=== PATIENT | female | born 1955 | race Caucasian/White ===

== ENCOUNTER → 2016-11-02 | Outpatient (CLI) | payer OTHER ==
--- NOTE | 2016-11-02 10:59 | XR ---
EXAMINATION TYPE: XR chest 2V DATE OF EXAM: 11/02/2016 COMPARISON: None HISTORY: 61-year-old female with cough TECHNIQUE: Frontal and lateral views FINDINGS: The cardiomediastinal silhouette, aorta, and pulmonary vasculature are within normal limits. Hypodens e nodules in the left upper lobe suggest calcified granulomas. Strandy atelectasis or scarring at the right upper to midlung. Nipple shadow on the right. No consolidation or pleural effusion. IMPRESSION: Suspect a couple calcified granulomas in the left upper lobe. No acute process seen.
== END | disposition home or self-care (01) ==
LOC: RADXRYALE 09:54
PROVIDERS: ATTEND Internal Medicine
DX: R05 Cough (principal)
CPT/HCPCS: 71020

== ENCOUNTER → 2016-11-05 | Outpatient (CLI) | payer OTHER ==
--- NOTE | 2016-11-07 12:16 | BMR ---
EXAMINATION TYPE: MR breast BILAT wo/w con DATE OF EXAM: 11/05/2016 COMPARISON: Bilateral breast MRI dated 10/05/2015 and 09/11/2014 HISTORY: 61-year-old postmenopausal female with family history of breast cancer. BRCA1 positive. TECHNIQUE: A series of fat and water weighted images in the long and short axis views of both breasts are obtained in conjunction with dynamic contrast MRI with subtraction technique. The patient was i njected with 12 mL intravenous MultiHance gadolinium contrast. Three-dimensional and additional pos tprocessing imaging is created on independent workstation and reviewed during official interpretation of this study. FINDINGS: The breasts are composed of extremely dense fibroglandular tissue. There is mild, symmetric background parenchymal enhancement. Scattered subcentimeter T2 hyperintense nonenhancing cysts are s een bilaterally. Susceptibility artifact is seen of the central medial right breast and posterior dep th relating to a biopsy marker. No suspicious enhancement or nonmass enhancement is appreciated. No abnormal internal mammary, axilla ry or intramammary lymphadenopathy is appreciated. IMPRESSION: No MRI evidence of malignancy. Annual screening mammography is recommended for which the patient is d ue unless performed at an outside facility.
== END | disposition home or self-care (01) ==
LOC: RADMRIMAIN 06:59
PROVIDERS: ATTEND Internal Medicine
DX: Z15.01 Genetic susceptibility to malignant neoplasm of breast (principal)
CPT/HCPCS: 77059; 0159T; A9577

== ENCOUNTER → 2016-11-17 | Outpatient (CLI) | payer OTHER ==
--- NOTE | 2016-11-17 17:08 | CT ---
EXAMINATION TYPE: CT chest w con DATE OF EXAM: 11/17/2016 COMPARISON: NONE HISTORY: 30 lb weight loss over 3 months. Weakness. Pulmonary nodule. CT DLP: 320.00 mGycm. Automated Exposure Control for Dose Reduction was Utilized. TECHNIQUE: CT scan of the thorax is performed following with IV Contrast, patient injected with 100 mL of Omnipaque 300. FINDINGS: LUNGS: There is moderate centrilobular emphysematous change with biapical pleural parenchymal scarrin g. Right lower lobe pulmonary nodule on series 4 image 48 measures 5 mm. 3 mm right lower lobe pulmon prateek nodule is seen in image 52. 3 mm pulmonary nodule is also present on image 58. Minimal bibasilar subsegmental atelectasis is seen. 4 mm pulmonary nodule along the interlobar fissure could relate to intrafissural lymph node seen on series 4 image 37 versus true pulmonary nodule. Calcified nodules wi thin left upper lobe and right lung apex relate to prior granulomatous change. The lungs are grossly clear, there is no concerning parenchymal mass or nodule identified. There is no pleural effusion o r pneumothorax seen. The tracheobronchial tree is patent. MEDIASTINUM: Mildly enlarged conglomeration of hilar adenopathy seen on the right measuring 1.1 x 1.4 cm. No gross evidence of mediastinal or axillary adenopathy. OTHER: No additional significant abnormality is seen. IMPRESSION: 1. Moderate centrilobular emphysematous changes. 2. Multiple sub-5 mm solid pulmonary nodules. In a high-risk patient repeat chest CT is recommended i n 6-12 months. 3. Mildly enlarged right hilar adenopathy, possibly reactive.
== END | disposition home or self-care (01) ==
LOC: RADCTMAIN 15:54
PROVIDERS: ATTEND Internal Medicine
DX: J43.2 Centrilobular emphysema (principal); R91.8 Other nonspecific abnormal finding of lung field; R59.0 Localized enlarged lymph nodes
CPT/HCPCS: 71260; Q9967

== ENCOUNTER → 2016-12-05 | Outpatient (CLI) | payer OTHER ==
--- NOTE | 2016-12-05 20:54 | US ---
EXAMINATION TYPE: US kidneys/renal and bladder DATE OF EXAM: 12/05/2016 COMPARISON: CT chest November 17, 2016 CLINICAL HISTORY: R31.21 asymptomatic microscopic hematuria. EXAM MEASUREMENTS: Right Kidney: 11.6 x 4.1 x 5.3 cm Left Kidney: 12.5 x 4.4 x 4.8 cm Right Kidney: cyst noted measuring 2.2 x 1.5 x 2.8 Left Kidney: echogenic foci noted superior, possible stone Bladder: dependant debris midline Bilateral Jets seen: Yes There is no evidence for hydronephrosis at this point in time. No nephrolithiasis is seen. No worri some solid or cystic masses are identified. The urinary bladder is predominantly anechoic. Bilatera l ureteral jets are seen. Dependent density could reflect some pus, debris, or blood product. IMPRESSION: No significant abnormality is identified to account for patient's symptoms of hematuria. Consider CT urogram evaluation if symptoms persist.
== END | disposition home or self-care (01) ==
LOC: RADUSWWP 15:26
PROVIDERS: ATTEND Internal Medicine
DX: R31.21 Asymptomatic microscopic hematuria (principal)
CPT/HCPCS: 76770

== ENCOUNTER → 2017-01-24 | Outpatient (CLI) | payer OTHER ==
--- NOTE | 2017-01-24 16:06 | CT ---
EXAMINATION TYPE: CT urogram wo/w con DATE OF EXAM: 01/24/2017 COMPARISON: NONE HISTORY: 61-year-old female hematuria TECHNIQUE: Contiguous axial scanning of the abdomen and pelvis performed without and with IV Contrast , patient injected with 100 ml mL of Omnipaque 300. Delayed images through the kidneys and bladder we re obtained. Coronal/sagittal reconstructions performed. 3-D reconstructions generated on a dedicated independent workstation. CT DLP: 1607 mGycm Automated exposure control for dose reduction was used. FINDINGS: The heart is normal size without pericardial effusion. Ectasia of the distal descending thoracic aort a at 2.7 cm. Calcified granuloma at the left base. A 3 and 4 mm pulmonary nodule at the right base, a xial image 7 and 13. Some focal fat along the anterior falciform ligament. Portal venous system is patent. No biliary duct al dilatation. Gallbladder, adrenal glands, and pancreas show no gross abnormality. A couple tiny calcified granulom as within the spleen. Kidneys show no evidence for nephrolithiasis or hydronephrosis. There is symmetric uptake and excreti on of contrast from both kidneys. The right kidney is slightly malrotated with a 2.8 cm cyst at the midpole. Additional subcentimeter h ypodensity exophytic from the upper pole cortex is too small for accurate CT characterization, likely a tiny cyst. No suspicious renal lesion. Symmetric uptake and excretion of contrast from both kidneys. No suspicious filling defect within the renal collecting systems or along the course of either ureter. No dilated small bowel, free fluid, or free air. No mesenteric or retroperitoneal lymphadenopathy see n. Mild overall stool burden. No pericolonic inflammatory change. No suspicious filling defects seen within the bladder. No abnormal fluid collection in the pelvis. Ut erus is not seen, likely surgically absent. Neither ovary is identified and could be small or also constantnio rgically absent. Bones: No osseous destructive process. IMPRESSION: 1. NO NEPHROLITHIASIS OR HYDRONEPHROSIS. NO SUSPICIOUS RENAL LESION OR FILLING DEFECT WITHIN THE JOVANY ECTING SYSTEMS OR URETERS. 2. A 2.8 CM CYST IN THE RIGHT KIDNEY AND ADDITIONAL SUBCENTIMETER CORTICAL LESION ON THE RIGHT LIKELY ADDITIONAL TINY CYST.
== END | disposition home or self-care (01) ==
LOC: RADCTMAIN 13:46
PROVIDERS: ATTEND Urology
DX: N28.1 Cyst of kidney, acquired (principal); N28.89 Other specified disorders of kidney and ureter
CPT/HCPCS: 74178; 74400; Q9967

== ENCOUNTER → 2017-07-11 | Outpatient (CLI) | payer BC ==
[2017-07-11 16:00] VITALS: BP 113/58; PULSE 95; TEMP 97.9; BMI 19.2
--- NOTE | 2017-07-11 16:57 | P.HPOB ---
History of Present Illness H&P Date: 07/11/17 Chief Complaint: Patient is here for her routine gynecologic exam. This is a 61-year-old with an LMP of 2006. She underwent a total laparoscopic hysterectomy with BSO in 2016. The patient states this was done because she tested positive for BRCA 1. The hysterectomy was benign. She also started having yearly breast MRIs because of this testing. She states she did have genetic counseling regarding the BRCA testing. She states she saw Dr. Aguilar for this. She is without gynecologic complaints. Review of Systems She has lost 11 pounds over the last 2 years. She denies respiratory, cardiac, or G.I. problems. Past Medical History Past Medical History: No Reported History Additional Past Medical History / Comment(s): +BRCA 1 ( cancer gene). 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 She has had for vaginal deliveries. History of Any Multi-Drug Resistant Organisms: None Reported Past Surgical History: Hysterectomy (TLH with BSO) Additional Past Surgical History / Comment(s): 2016 Past Anesthesia/Blood Transfusion Reactions: Family History of Problems w/ Anesthesia, Motion Sickness Additional Past Anesthesia/Blood Transfusion Reaction / Comment(s): MOTHER HAD PONV. NO PREV ANESTHESIA OR SURGERY. Past Psychological History: No Psychological Hx Reported Smoking Status: Current every day smoker (6 cigarettes to one pack of cigarettes per day. 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 - Past Family History Mother Sister(s) Daughter(s) Family Medical History: Cancer (Breast cancer age 36, positive for a BRCA gene) Mother Family Medical History: Cancer (Breast cancer in her 80s) Sister(s) Family Medical History: Cancer (Breast and ovarian cancer) Father Family Medical History: Cancer (Cancer of the brain) Medications and Allergies Home Medications Medication Instructions Recorded Confirmed Type Calcium Carbonate/Vitamin D3 1 tab PO DAILY 02/24/16 02/29/16 History [Caltrate 600 Plus D3 Tablet] Multivitamins, Thera [Multivitamin] 1 tab PO DAILY 02/24/16 02/29/16 History Naproxen Sodium [Aleve] 440 mg PO BID PRN 02/24/16 02/29/16 History Allergies Allergy/AdvReac Type Severity Reaction Status Date / Time No Known Allergies Allergy Verified 07/11/17 16:01 Exam - Vital Signs Vital signs: Vital Signs Temp Pulse BP 07/11/17 15:57 97.9 F 95 113/58 Intake and Output 07/11/17 07/11/17 07/11/17 06:59 14:59 22:59 Other: Weight 60.781 kg Height 5'10" BMI 19.2. This is a well-developed thin white female who is alert and oriented times 3 in no acute distress. HEENT: Within normal limits. NECK: Supple without mass or thyromegaly. CHEST AND LUNGS: Clear to auscultation. HEART: Regular rate and rhythm. BREASTS: Are without mass or discharge. AXILLARY EXAM: Negative for adenopathy. BACK: Negative for CVA tenderness. ABDOMEN: Soft, nontender, without palpable masses. PELVIC EXAM: Normal external genitalia with mild to moderate atrophy. Vagina appears normal with mild atrophy. There is no unusual discharge. There is no evidence of prolapse. There are no palpable adnexal masses or tenderness. RECTAL EXAM: rectovaginal exam is negative for mass or tenderness and is negative for occult blood. EXTREMITIES: Nontender. IMPRESSION: 1. 61-year-old menopausal female status post TLH with BSO for positive BRCA1 testing. The hysterectomy was benign. 2. Strong family history of breast and ovarian cancer with positive BRCA1 testing. PLAN: 1. Pap smears have been discontinued. 2. Self breast awareness was discussed. 3. I have recommended that she continue yearly screening mammograms even though she does get yearly MRI testing of the breast. An order slip for bilateral screening mammogram was given to the patient. MRI testing of the breast will be done through Dr. Palacios as she is done in the past. 4. Osteoporosis prevention was discussed. I have also recommended bone density screening since it has been many years since he has had this done. An order slip was given to the patient for this. 5. I have recommended that she quit smoking. We discussed various ways of doing this. 6. She will return in one year.
== END ==
LOC: WWCWWP 14:54
PROVIDERS: ATTEND Obstetrics & Gynecology
DX: Z53.9 Procedure and treatment not carried out, unspecified reason (principal)

== ENCOUNTER → 2017-08-08 | Outpatient (CLI) | payer BC ==
--- NOTE | 2017-08-09 12:03 | BD ---
EXAMINATION TYPE: Axial Bone Density DATE OF EXAM: 08/08/2017 COMPARISON: NONE CLINICAL HISTORY: 62-year-old female postmenopausal screening without HRT Height: 68.2 IN Weight: 131 LBS FRAX RISK QUESTIONS: Current Tobacco Use: YES RISK FACTORS HISTORY OF: Active: YES Postmenopausal woman: AGE 51 MEDICATIONS: Additional Medications: CALCIUM, VIT D EXAM MEASUREMENTS: Bone mineral densitometry was performed using the [employer] System. Bone mineral density as measured about the Lumbar spine is: ----- L1-L4(G/cm2): 0.873 T Score Values are as follows: ----- L2: -2.7 ----- L3: -2.2 ----- L4: -2.8 ----- L1-L4: -2.6 Bone mineral density BASELINE Bone mineral density about the R hip (g/cm2): 0.696 Bone mineral density about the L hip (g/cm2): 0.749 T Score values are as follows: -----R Neck: -2.5 -----L Neck: -2.1 -----R Total: -2.9 -----L Total: -2.3 Bone mineral density BASELINE IMPRESSION: Osteoporosis (T Score less than -2.5). There is increased fracture risk and therapy is usually indicated based on age. Re-Screen 1-2 years. NOTE: T-SCORE=SD OF THE YOUNG ADULT MEAN.
--- NOTE | 2017-08-10 11:21 | MM ---
Reason for exam: screening (asymptomatic). Last mammogram was performed 1 year and 11 months ago. History: Patient is postmenopausal. Family history of breast cancer in mother at age 84, breast cancer in sister at age 40, and breast cancer in daughter at age 36. Benign excisional biopsy of the right breast, September 07, 2004. Stereotactic core biopsy of the right breast, August 25, 2004. Physical Findings: A clinical breast exam by your physician is recommended on an annual basis and results should be correlated with mammographic findings. MG Screening Mammo w CAD Bilateral CC and MLO view(s) were taken. Prior study comparison: September 16, 2015, bilateral MG 3d screening mammo w/cad. May 21, 2014, mammogram, performed at [facility]. The breast tissue is heterogeneously dense. This may lower the sensitivity of mammography. No significant changes when compared with prior studies. ASSESSMENT: Negative, BI-RAD 1 RECOMMENDATION: Routine screening mammogram of both breasts in 1 year. Patient should continue monthly self breast exams. A negative mammogram should not preclude additional follow up of suspicious palpable abnormality.
== END | disposition home or self-care (01) ==
LOC: RADMAMWWP 15:27
PROVIDERS: ATTEND Obstetrics & Gynecology
DX: Z12.31 Encounter for screening mammogram for malignant neoplasm of breast (principal); M81.0 Age-related osteoporosis without current pathological fracture; Z80.3 Family history of malignant neoplasm of breast; Z78.0 Asymptomatic menopausal state
CPT/HCPCS: 77067; 77080

== ENCOUNTER → 2018-11-13 | Outpatient (CLI) | payer OTHER ==
[2018-11-13 12:45] VITALS: BP 128/70; PULSE 88; RESP 18; TEMP 98.5; BMI 20.2
--- NOTE | 2018-11-13 13:25 | P.HPOB ---
History of Present Illness H&P Date: 11/13/18 Chief Complaint: The patient is here for her routine gynecologic exam and ma mmogram. This is a 63-year-old with an LMP of 2006. The patient is status post [facility] with BSO in 2016 because of her history of being positive for the BRCA1 mutation. The hysterectomy was benign. The patient is without gynecologic complaints. She has been having breast MRIs yearly because of her positive BRCA testing. Review of Systems The patient has gained 6 pounds over the last year. She denies respiratory, cardiac, or G.I. problems. She has been feeling tired. She has done blood testing for this through her primary care physician. Past Medical History Past Medical History: No Reported History Additional Past Medical History / Comment(s): +BRCA 1 ( cancer gene). 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 She has had for vaginal deliveries. History of Any Multi-Drug Resistant Organisms: None Reported Past Surgical History: Hysterectomy Additional Past Surgical History / Comment(s): TL Hyst with BSO in 2015. Colonoscopy 2018. Past Anesthesia/Blood Transfusion Reactions: Family History of Problems w/ Anesthesia, Motion Sickness Additional Past Anesthesia/Blood Transfusion Reaction / Comment(s): MOTHER HAD PONV. NO PREV ANESTHESIA OR SURGERY. Past Psychological History: No Psychological Hx Reported Smoking Status: Current every day smoker (Half to one pack of cigarettes per day) Past Alcohol Use History: None Reported Additional Past Alcohol Use History / Comment(s): SMOKER FOR 25 YEARS, 1 PPD AVG. 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 - Past Family History Mother Sister(s) Daughter(s) Family Medical History: Cancer Additional Family Medical History / Comment(s): Breast cancer in her mother, sister and daughter. Sister had both ovarian and breast cancer. Daughter had breast cancer at age 36 and is BRCA positive. Mother Family Medical History: Cancer Additional Family Medical History / Comment(s): Breast cancer in her 80s. Sister(s) Family Medical History: Cancer Additional Family Medical History / Comment(s): Breast and ovarian cancer. Father Family Medical History: Cancer Additional Family Medical History / Comment(s): Brain cancer. Medications and Allergies Home Medications Medication Instructions Recorded Confirmed Type Calcium Carbonate/Vitamin D3 1 tab PO DAILY 02/24/16 11/13/18 History [Caltrate 600 Plus D3 Tablet] Multivitamins, Thera [Multivitamin] 1 tab PO DAILY 02/24/16 11/13/18 History Naproxen Sodium [Aleve] 440 mg PO BID PRN 02/24/16 11/13/18 History Alendronate Sodium 70 mg PO WEEKLY #12 tablet 09/13/17 11/13/18 Rx Allergies Allergy/AdvReac Type Severity Reaction Status Date / Time No Known Allergies Allergy Verified 11/13/18 12:40 Exam Vital Signs Temp Pulse Resp BP Pulse Ox 11/13/18 12:42 98.5 F 88 18 128/70 98 Intake and Output 11/12/18 11/13/18 11/13/18 22:59 06:59 14:59 Other: Weight 63.957 kg Height 5'10", weight 141 pounds, BMI 20.2. This is a well-developed well-nourished white female who is alert and oriented times 3 in no acute distress. HEENT: Within normal limits. NECK: Supple without mass or thyromegaly. CHEST AND LUNGS: Clear to auscultation. HEART: Regular rate and rhythm. BREASTS: Are without mass or discharge. AXILLARY EXAM: Negative for adenopathy. BACK: Negative for CVA tenderness. ABDOMEN: Soft, nontender, without palpable masses. PELVIC EXAM: External genitalia appears normal with mild atrophy. Vagina appears normal with mild atrophy. There is no evidence of prolapse. Bimanual examination is negative for mass or tenderness. RECTAL EXAM: Rectovaginal exam is negative for mass or tenderness and is negative for occult blood. EXTREMITIES: Nontender. IMPRESSION: 1. 63-year-old menopausal female status post TLH with BSO for positive BRCA1 testing, with normal gynecologic exam. Hysterectomy was benign. 2. Strong family history of breast and ovarian cancer with positive BRCA1 testing. 3. History of osteoporosis. The patient has been on Fosamax since about August 2017. PLAN: 1. Pap smears have been discontinued. 2. Self breast awareness 3. Screening mammogram will be done today. She will continue to have breast MRI testing done as per Dr. Palacios's recommendations. 4. Osteoporosis management was discussed. I have stressed the importance of adequate calcium, vitamin D and regular exercise. Recommended amounts of calcium and vitamin D were also discussed. She will continue Fosamax. The electronic prescription will be sent to [facility] pharmacy in [place]. We will plan on repeating the bone density testing in one year. 5. She was advised to return in one year for her annual well woman exam.
--- NOTE | 2018-11-15 09:49 | MM ---
Reason for exam: screening (asymptomatic). Last mammogram was performed 1 year and 3 months ago. History: Patient is postmenopausal. Family history of breast cancer in mother at age 84, breast cancer in sister at age 40, and breast cancer in daughter at age 36. Benign excisional biopsy of the right breast, September 07, 2004. Stereotactic core biopsy of the right breast, August 25, 2004. Physical Findings: A clinical breast exam by your physician is recommended on an annual basis and results should be correlated with mammographic findings. MG 3D Screening Mammo W/Cad Bilateral CC and MLO view(s) were taken. Prior study comparison: August 08, 2017, bilateral MG screening mammo w CAD. September 16, 2015, bilateral MG 3d screening mammo w/cad. The breast tissue is extremely dense which could obscure a lesion on mammography. No significant changes when compared with prior studies. ASSESSMENT: Benign, BI-RAD 2 RECOMMENDATION: Routine screening mammogram of both breasts in 1 year.
== END | disposition home or self-care (01) ==
LOC: WWCWWP 12:00
PROVIDERS: ATTEND Obstetrics & Gynecology
DX: Z12.31 Encounter for screening mammogram for malignant neoplasm of breast (principal)
CPT/HCPCS: 77063; 77067

== ENCOUNTER → 2021-11-18 | Outpatient (CLI) | payer OTHER ==
--- NOTE | 2021-11-19 10:14 | MM ---
Reason for Exam: Screening (asymptomatic). Last mammogram was performed 3 year(s) and 0 month(s) ago. Patient History: Menarche at age 15. First Full-Term at age 22. Left ovary removed at age 61. Right ovary removed at age 61. Hysterectomy at age 61. Postmenopausal. 09/07/2004, Benign Excisional Biopsy on the right side. 08/25/2004, Stereotactic Core Biopsy on the Right side. Sister had breast cancer, age 40. Daughter had breast cancer, age 36. Mother had breast cancer, age 84. Risk Values: Albertina 5 year model risk: 9.1%. NCI Lifetime model risk: 30.1%. Prior Study Comparison: 09/16/2015 Bilateral Screening Mammogram, [facility]. 08/08/2017 Bilateral Screening Mammogram, [facility]. 11/13/2018 Bilateral Screening Mammogram, [facility]. Tissue Density: The breast tissue is heterogeneously dense. This may lower the sensitivity of mammography. Findings: Analyzed By CAD. Benign punctate calcifications are within the right breast. Couple punctate calcifications are within the left breast. No suspicious groups of microcalcifications, spiculated or lobular masses, architectural distortion or other secondary signs of malignancy are mammographically apparent. Overall Assessment: Benign, BI-RAD 2 Management: Screening Mammogram of both breasts in 1 year. A negative mammogram report should not preclude additional follow up of suspicious palpable abnormalities. Patient should continue monthly self breast exam. A clinical breast exam by your physician is recommended on an annual basis and results should be correlated with mammographic findings. Electronically signed and approved by: Aj Early D.O. Radiologis
== END | disposition home or self-care (01) ==
LOC: RADMAMWWP 13:13
PROVIDERS: ATTEND Internal Medicine
DX: Z12.31 Encounter for screening mammogram for malignant neoplasm of breast (principal); Z78.0 Asymptomatic menopausal state; Z80.3 Family history of malignant neoplasm of breast
CPT/HCPCS: 77063; 77067

== ENCOUNTER → 2021-12-30 | Outpatient (CLI) | payer MEDICARE ==
--- NOTE | 2021-12-30 12:19 | XR ---
EXAMINATION TYPE: XR chest 2V DATE OF EXAM: 12/30/2021 12:14 PM COMPARISON: Chest radiographs from 12/23/2016 TECHNIQUE: XR chest 2V Frontal and lateral views of the chest. CLINICAL INDICATION:Female, 66 years old with history of J432 CENTRILOBAR EMPHYSEMA; FINDINGS: Lungs/Pleura: There is flattening of the diaphragm with increased lucency of the lungs. No evidence o f pneumothorax, pleural effusion or focal consolidation. Stable calcified granuloma within the left u pper lobe. Pulmonary vascularity: Unremarkable. Heart/mediastinum: Cardiomediastinal silhouette is unremarkable. Musculoskeletal: No acute osseous pathology. IMPRESSION: 1. No acute cardiopulmonary disease process. No significant change from prior examination. 2. COPD changes.
== END | disposition home or self-care (01) ==
LOC: RADXRYALE 11:58
PROVIDERS: ATTEND Internal Medicine
DX: J44.9 Chronic obstructive pulmonary disease, unspecified (principal)
CPT/HCPCS: 71046

== ENCOUNTER → 2023-03-29 | Outpatient (CLI) | payer MEDICARE ==
--- NOTE | 2023-03-31 17:15 | MM ---
Reason for Exam: Screening (asymptomatic). Last mammogram was performed 1 year(s) and 5 month(s) ago. Patient History: Menarche at age 15. First Full-Term at age 22. Left ovary removed at age 61. Right ovary removed at age 61. Hysterectomy at age 61. Postmenopausal. Patient has history of breast feeding. 09/07/2004, Benign Excisional Biopsy on the right side. 08/25/2004, Stereotactic Core Biopsy on the Right side. Sister had breast cancer, age 40. Daughter had breast cancer, age 36. Mother had breast cancer, age 84. Risk Values: Albertina 5 year model risk: 9.2%. NCI Lifetime model risk: 29.2%. Prior Study Comparison: 08/08/2017 Bilateral Screening Mammogram, [facility]. 11/13/2018 Bilateral Screening Mammogram, [facility]. 11/18/2021 Bilateral MG 3D screening mammo w/cad, [facility]. Tissue Density: The breast tissue is extremely dense which could obscure a lesion on mammography. Findings: Analyzed By CAD. Pattern appears symmetrical and stable. Some regional punctate calcifications are within the left breast. No suspicious groups of microcalcifications, spiculated or lobular masses, architectural distortion or other secondary signs of malignancy are mammographically apparent. Overall Assessment: Benign, BI-RAD 2 Management: Screening Mammogram of both breasts in 1 year. A negative mammogram report should not preclude additional follow up of suspicious palpable abnormalities. Patient should continue monthly self breast exam. A clinical breast exam by your physician is recommended on an annual basis and results should be correlated with mammographic findings. Electronically signed and approved by: Aj Early D.O. Radiologis
== END | disposition home or self-care (01) ==
LOC: RADMAMWWP 13:42
PROVIDERS: ATTEND Internal Medicine
DX: Z12.31 Encounter for screening mammogram for malignant neoplasm of breast (principal); Z78.0 Asymptomatic menopausal state; Z80.3 Family history of malignant neoplasm of breast
CPT/HCPCS: 77063; 77067

== ENCOUNTER → 2024-01-09 | Outpatient (CLI) | payer MEDICARE ==
[2024-01-09 13:56] LABS: African American GFR (CKD) >90 (>60 ml/min/1.73 sqM); Blood Urea Nitrogen 18 mg/dL (7-17); Non-African American GFR(CKD) 83 (>60 ml/min/1.73 sqM)
--- NOTE | 2024-01-09 15:47 | CT ---
EXAMINATION TYPE: CT abdomen pelvis w con CT DLP: 583.7 mGycm, Automated exposure control for dose reduction was used. DATE OF EXAM: 01/09/2024 3:22 PM COMPARISON: CT abdomen pelvis most recent from 01/24/2017 CLINICAL INDICATION: Female, 68 years old with history of R14.0 ABDOMINAL DISTENSION (GASEOUS); Bloat ed stomach x 8-10 months. TECHNIQUE: Axial CT abdomen pelvis w con;Sagittal and coronal reformats were created on a separate w orkstation. Contrast used:100ml mL of Isovue 300 with IV Contrast, (none if empty) Oral contrast used: with Oral Contrast (none if empty) FINDINGS: LOWER CHEST: Left lower lobe calcified granulomas. Scattered sub-6 mm nodule densities in the lung ba ses. Nodule. Mild centrilobular emphysema changes. ABDOMEN LIVER: Unremarkable GALLBLADDER AND BILE DUCTS: Unremarkable. PANCREAS: Unremarkable. SPLEEN: Unremarkable. ADRENAL GLANDS: Unremarkable. KIDNEYS AND URETERS: No evidence of hydronephrosis or renal calculus. The ureters are unremarkable. Right renal cortical cyst.7 PELVIS BLADDER: Unremarkable REPRODUCTIVE: Unremarkable. ABDOMEN & PELVIS STOMACH AND BOWEL: No evidence of bowel obstruction. PERITONEUM/RETROPERITONEUM: No evidence of pneumoperitoneum or free fluid. VASCULATURE: No evidence of aortic aneurysm. MUSCULOSKELETAL: No acute osseous abnormalities LYMPH NODES: No gross evidence for lymphadenopathy. SOFT TISSUE/ABDOMINAL WALL: Bilateral fat-containing ventral hernia suggested. IMPRESSION: 1. No evidence for acute abdominal process. 2. Mild emphysema with Scattered sub-6 mm nodules throughout the lung bases. Consider yearly low-dose lung cancer screening. [facility], , 01/09/2024 3:45 PM
== END ==
LOC: RADCTMAIN 13:22
PROVIDERS: ATTEND Internal Medicine
DX: J43.2 Centrilobular emphysema (principal)
CPT/HCPCS: 36415; 74177; 82565; 84520